=== PATIENT | female | born 1995 | race Caucasian/White ===

== ENCOUNTER 2021-05-27 14:33 | Emergency (ER) | payer OTHER ==
[2021-05-27 14:50] VITALS: BMI 30.1
[2021-05-27 16:27] VITALS: BP 121/63; PULSE 80; TEMP 97.9
== END 2021-05-27 16:27 ==
LOC: JER 14:33
DX: J06.9 Acute upper respiratory infection, unspecified (principal)
CPT/HCPCS: 71046-TC-FY; 93005; 93010; 99284-25; C9803; U0003; U0005

== ENCOUNTER 2021-09-26 19:30 | Emergency (ER) | payer OTHER ==
[2021-09-26 19:53] VITALS: BP 123/71; PULSE 77; TEMP 97.8; BMI 31.8
[2021-09-26 20:53] LABS: URINE APPEARANCE CLEAR; URINE BILIRUBIN NEGATIVE (NEGATIVE); URINE COLOR YELLOW; URINE GLUCOSE (UA) NEGATIVE (NEGATIVE); URINE KETONE NEGATIVE (NEGATIVE); URINE LEUK ESTERASE NEGATIVE (NEGATIVE); URINE NITRITE NEGATIVE (NEGATIVE); URINE PROTEIN NEGATIVE (NEGATIVE); URINE UROBILINOGEN 0.2 mg/dL (0.2-1.0)
[2021-09-26 21:19] LABS: BASO % 0.5 % (0-2.0); EOS % 2.4 % (0-4.5); HEMATOCRIT 35.8 % (32.4-45.2); HEMOGLOBIN 12.5 GM/dL (10.7-15.3); LYMPH % 31.4 % (8-40); MCH 30.8 pg (25.7-33.7); MEAN CELL VOLUME 88.1 fl (80-96); MEAN PLT VOLUME 8.7 fl (7.5-11.1); MONO % 10.3 % (3.8-10.2); NEUT % 55.4 % (42.8-82.8); PLATELET COUNT 223 10^3/uL (134-434); RBC 4.06 M/mm3 (3.60-5.2); RDW 12.8 % (11.6-15.6); WHITE BLOOD COUNT 9.8 K/mm3 (4.0-10.0)
[2021-09-26 21:45] LABS: ALBUMIN 3.6 g/dl (3.4-5.0)
[2021-09-26 21:48] LABS: CREATININE 0.5 mg/dL (0.55-1.3)
[2021-09-26 21:50] LABS: BILIRUBIN,TOTAL 0.2 mg/dL (0.2-1); TOT PROT 7.4 g/dl (6.4-8.2)
== END 2021-09-27 00:59 | disposition home or self-care (01) ==
LOC: JER 19:30
DX: N20.0 Calculus of kidney (principal)
CPT/HCPCS: 36415; 76801-TC; 80053; 81003; 84702; 84703; 85025; 86850; 86900; 86901; 87086; 99284-25